=== PATIENT | female | born 1935 | race Asian ===

== ENCOUNTER 2016-09-17 07:03 | Day surgery (SDC) | payer MEDICARE ==
[~2016-09-17] VITALS: Ht 157.5 cm; Wt 60.0 kg
[2016-09-17 06:30] VITALS: BP 123/59
[2016-09-17] MEDS: CATARACT PRE-OP EYE DROPS 0.5ML SYRINGE OS SCH ×3 (06:49→07:07)
[2016-09-17] MEDS: HOME MEDICATION OS SCH ×3 (06:49→07:07)
[2016-09-17] MEDS: LIDOCAINE 3.5% OPHTH GEL (AKTEN) 1 ML BTL OS SCH ×2 (06:57→07:07)
[~2016-09-17 07:03] MED LIST: ACETAMINOPHEN 500 MG TAB (TYLENOL) PO PRN; BSS OPHTHALMIC IRRIGATION SOLUTION 15 ML BTL ONE; CHONDROITIN/HYALURONATE (DISCOVISC) 1 ML SYR IO ONE; EPINEPHrine 1MG/ML (1:1000) 1 ML AMPUL (ADRENALIN) ONE; LIDOCAINE PF 1% (XYLOCAINE) 30 ML VIAL INJ ONE; PHENYLEPHRINE/KETOROLAC 4 ML VIAL IO ONE; POVIDONE-IODINE 5% OPHTHALMIC SOLUTION (BETADINE PREP) 30 ML BTL ONE; SODIUM CHLORIDE FLUSH 3 ML SYR IV PRN; TETRACAINE 0.5% OPHTHALMIC SOLUTION 4 ML BTL ONE; VANCOMYCIN 500 MG VIAL ONE; diphenhydrAMINE 50 MG/ML INJ (BENADRYL) IV PRN
[2016-09-17] MEDS ORDERED: MIDAZOLAM 2 MG/2 ML (VERSED) VIAL ONE (07:06)
--- OUTSIDE RECORDS SUMMARY | 2016-09-17 07:09 | XMS REPORT | Continuity of Care Document ---
Author Author [facility] Address Unknown Phone Unavailable Allergies Active Description Code Type Severity Reaction Onset Reported/Identified Relationship to Patient Clinical Status Yes Ttglkno-Ibg-Qsx Reductase Inhibitor [id number] Drug Allergy Unknown N/A 09/14/2016 Medications Problems Date Dx Coded Attending Type Code Diagnosis Diagnosed By 08/07/2013 Romaine CHESTER, Randy Kunz Ot 719.41 JOINT PAIN-SHLDER 08/07/2013 Romaine CHESTER, Randy Kunz Ot V57.1 PHYSICAL THERAPY NEC 04/23/2014 Ot V76.12 04/23/2014 Romaine CHESTER, Randy Kunz Ot 250.00 04/23/2014 Romaine CHESTER, Randy Kunz Ot V76.12 04/23/2014 Romaine CHESTER, Randy Kunz Ot 250.00 04/23/2014 Romaine CHESTER, Randy Kunz Ot 272.2 04/23/2014 Romaine CHESTER, Randy Kunz Ot 477.9 04/23/2014 Romaine CHESTER, Randy Kunz Ot 716.90 04/23/2014 Romaine CHESTER, Randy Kunz Ot 715.91 04/23/2014 Romaine CHESTER, Randy Kunz Ot 719.41 05/14/2014 Romaine CHESTER, Randy Kunz Ot 250.00 05/14/2014 Romaine CHESTER, Randy Kunz Ot 272.4 05/22/2014 Romaine CHESTER, Randy Kunz Ot 250.00 05/22/2014 Romaine CHESTER, Randy Kunz Ot 268.9 06/23/2014 Romaine CHESTER, Randy Kunz Ot 698.2 08/17/2014 Romaine CHESTER, Randy Kunz Ot 250.00 08/17/2014 Romaine CHESTER, Randy Kunz Ot 268.9 08/17/2014 Romaine CHESTER, Randy Kunz Ot 272.2 12/21/2014 Romaine CHESTER, Randy Kunz Ot 250.00 12/21/2014 Randy Gavin MD Ot 272.2 12/21/2014 Romaine CHESTER, Randy Kunz Ot 530.81 12/28/2014 Randy Gavin MD Ot 250.00 12/28/2014 Randy Gavin MD Ot 272.2 12/31/2014 Randy Gavin MD Ot 530.81 04/26/2015 Erasmo CHESTER, Ronnie Brownlee Ot E78.4 04/26/2015 Erasmo CHESTER, Ronnie Brownlee Ot R73.09 08/22/2015 Ot V76.12 OTH SCREEN MAMMO-MALIGN NEOPLASM OF TAYLOR 08/22/2015 Randy Gavin MD Ot 250.00 DIAB SOPHY WO COMPL, TYPE II OR UNSPEC TY 08/22/2015 Randy Gavin MD Ot V76.12 OTH SCREEN MAMMO-MALIGN NEOPLASM OF T[place]LOR 08/22/2015 Randy Gavin MD Ot 250.00 DIAB SOPHY WO COMPL, TYPE II OR UNSPEC TY 08/22/2015 Randy Gavin MD Ot 272.2 MIXED HYPERLIPIDEMIA 08/22/2015 Randy Gavin MD Ot 477.9 ALLERGIC RHINITIS NOS 08/22/2015 Randy Gavin MD Ot 716.90 ARTHROPATHY NOS-UNSPEC 08/22/2015 Randy Gavin MD Ot 715.91 OSTEOARTHROS NOS-SHLDER 08/22/2015 Randy Gavin MD Ot 719.41 JOINT PAIN-SHLDER 08/22/2015 Randy Gavin MD Ot 250.00 DIAB SOPHY WO COMPL, TYPE II OR UNSPEC TY 08/22/2015 Randy Gavin MD Ot 272.4 HYPERLIPIDEMIA NEC/NOS 08/22/2015 Randy Gavin MD Ot 250.00 DIAB SOPHY WO COMPL, TYPE II OR UNSPEC TY 08/22/2015 Randy Gavin MD Ot 268.9 VITAMIN D DEFICIENCY NOS 08/22/2015 Randy Gavin MD Ot 698.2 PRURIGO 08/22/2015 Randy Gavin MD Ot 250.00 DIAB SOPHY WO COMPL, TYPE II OR UNSPEC TY 08/22/2015 Randy Gavin MD Ot 268.9 VITAMIN D DEFICIENCY NOS 08/22/2015 Randy Gavin MD Ot 272.2 MIXED HYPERLIPIDEMIA 08/22/2015 Romaine CHESTER, Randy Kunz Ot 250.00 DIAB SOPHY WO COMPL, TYPE II OR UNSPEC TY 08/22/2015 Romaine CHESTER, Randy Kunz Ot 272.2 MIXED HYPERLIPIDEMIA 08/22/2015 Romaine CHESTER, Randy Kunz Ot 530.81 ESOPHAGEAL REFLUX 08/22/2015 Romaine CHESTER, Randy Kunz Ot K21.9 GASTRO-ESOPHAGEAL REFLUX DISEASE WITHOUT 08/22/2015 Erasmo CHESTER, Ronnie Brownlee Ot E78.4 OTHER HYPERLIPIDEMIA 08/22/2015 Erasmo CHESTER, Ronnie Brownlee Ot R73.09 OTHER ABNORMAL GLUCOSE 08/24/2015 Romaine CHESTER, Randy Kunz Ot M48.06 SPINAL STENOSIS, LUMBAR REGION 08/24/2015 Romaine CHESTER, Randy Kunz Ot M54.5 LOW BACK PAIN 08/28/2015 Romaine CHESTER, Randy Kunz Ot M48.06 SPINAL STENOSIS, LUMBAR REGION 08/28/2015 Randy Gavin MD Ot M54.5 LOW BACK PAIN 09/15/2015 Romaine CHESTER, Randy Kunz Ot M48.06 SPINAL STENOSIS, LUMBAR REGION 09/15/2015 Randy Gavin MD Ot M54.5 LOW BACK PAIN 09/22/2015 Randy Gavin MD Ot E78.5 HYPERLIPIDEMIA, UNSPECIFIED 09/22/2015 Randy Gavin MD Ot R73.09 OTHER ABNORMAL GLUCOSE 09/22/2015 Randy Gavin MD Ot E78.5 HYPERLIPIDEMIA, UNSPECIFIED 09/22/2015 Randy Gavin MD Ot R73.09 OTHER ABNORMAL GLUCOSE 09/28/2015 Randy Gavin MD Ot E78.5 HYPERLIPIDEMIA, UNSPECIFIED 09/28/2015 Randy Gavin MD Ot R73.09 OTHER ABNORMAL GLUCOSE 09/29/2015 Randy Gavin MD Ot E78.5 HYPERLIPIDEMIA, UNSPECIFIED 09/29/2015 Randy Gavin MD Ot R73.09 OTHER ABNORMAL GLUCOSE 10/14/2015 Randy Gavin MD Ot E78.5 HYPERLIPIDEMIA, UNSPECIFIED 10/14/2015 Randy Gavin MD Ot R73.09 OTHER ABNORMAL GLUCOSE 04/09/2016 Randy Gavin MD Ot E11.40 TYPE 2 DIABETES MELLITUS WITH DIABETIC N 04/09/2016 Randy Gavin MD Ot E78.2 MIXED HYPERLIPIDEMIA 04/09/2016 Randy Gavin MD, Ot E11.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 2 DIABETES MELLITUS WITH DIABETIC N 04/09/2016 Randy Gavin MD Ot E78.2 MIXED HYPERLIPIDEMIA 04/09/2016 Randy Gavin MD, Ot 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 2 DIABETES MELLITUS WITH DIABETIC N 04/09/2016 Randy Gavin MD Ot E78.2 MIXED HYPERLIPIDEMIA 05/03/2016 Randy Gavin MD, Ot E11.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 2 DIABETES MELLITUS WITH DIABETIC N 05/03/2016 Randy Gavin MD, Ot E78.2 MIXED HYPERLIPIDEMIA 09/14/2016 Ot V76.12 OTH SCREEN MAMMO-MALIGN NEOPLASM OF T[place]LOR 09/14/2016 Randy Gavin MD Ot 250.00 DIAB SOPHY WO COMPL, TYPE II OR UNSPEC TY 09/14/2016 Randy Gavin MD Ot V76.12 OTH SCREEN MAMMO-MALIGN NEOPLASM OF T[place] 09/14/2016 Randy Gavin MD Ot 250.00 DIAB SOPHY WO COMPL, TYPE II OR UNSPEC TY 09/14/2016 Randy Gavin MD Ot 272.2 MIXED HYPERLIPIDEMIA 09/14/2016 Randy Gavin MD Ot 477.9 ALLERGIC RHINITIS NOS 09/14/2016 Randy Gavin MD Ot 716.90 ARTHROPATHY NOS-UNSPEC 09/14/2016 Randy Gavin MD Ot 715.91 OSTEOARTHROS NOS-SHLDER 09/14/2016 Randy Gavin MD Ot 719.41 JOINT PAIN-SHLDER 09/14/2016 Randy Gavin MD Ot 250.00 DIAB SOPHY WO COMPL, TYPE II OR UNSPEC TY 09/14/2016 Randy Gavin MD Ot 272.4 HYPERLIPIDEMIA NEC/NOS 09/14/2016 Randy Gavin MD Ot 250.00 DIAB SOPHY WO COMPL, TYPE II OR UNSPEC TY 09/14/2016 Randy Gavin MD Ot 268.9 VITAMIN D DEFICIENCY NOS 09/14/2016 Randy Gavin MD Ot 698.2 PRURIGO 09/14/2016 Randy Gavin MD, Ot 250.00 DIAB SOPHY WO COMPL, TYPE II OR UNSPEC TY 09/14/2016 Randy Gavin MD Ot 268.9 VITAMIN D DEFICIENCY NOS 09/14/2016 Randy Gavin MD, Ot 272.2 MIXED HYPERLIPIDEMIA 09/14/2016 Randy Gavin MD, Ot 250.00 DIAB SOPHY WO COMPL, TYPE II OR UNSPEC TY 09/14/2016 Randy Gavin MD, Ot 272.2 MIXED HYPERLIPIDEMIA 09/14/2016 Randy Gavin MD Ot 530.81 ESOPHAGEAL REFLUX 09/14/2016 Randy Gavin MD, Ot K21.9 GASTRO-ESOPHAGEAL REFLUX DISEASE WITHOUT 09/14/2016 Erasmo CHESTER, Ronnie Brownlee Ot E78.4 OTHER HYPERLIPIDEMIA 09/14/2016 Erasmo CHESTER, Ronnie Brownlee Ot R73.09 OTHER ABNORMAL GLUCOSE 09/14/2016 Randy Gavin MD, Ot M48.06 SPINAL STENOSIS, LUMBAR REGION 09/14/2016 Randy Gavin MD, Ot M54.5 LOW BACK PAIN 09/14/2016 Randy Gavin MD, Ot E78.5 HYPERLIPIDEMIA, UNSPECIFIED 09/14/2016 Randy Gavin MD, Ot R73.09 OTHER ABNORMAL GLUCOSE 09/14/2016 Randy Gavin MD Ot E11.40 TYPE 2 DIABETES MELLITUS WITH DIABETIC N 09/14/2016 Randy Gavin MD, Ot E78.2 MIXED HYPERLIPIDEMIA Procedures Results Test Result Range General health panel - 04/09/16 09:52 Blood automated leukocyte count 7.67 4.0 -11.0 Erythrocytes 4.57 4.00-5.00 12.0-16.0;g/dL 13.4 12.0-15.5 Hematocrit 39.80 35.00-45.00 Automated erythrocyte mean corpuscular volume 87 80-100 Mean corpuscular hemoglobin (MCH) determination 29.3 26.0-34.0 Automated erythrocyte mean corpuscular hemoglobin concentration measurement ( mass/volume) 33.7 31.0-37.0 Erythrocyte distribution width 11.7 11.8 -15.6 Automated blood platelet count 215 150- 450 Automated blood platelet mean volume measurement 10.8 6.0-9.5 HEMOGLOBIN A1C* - 04/09/16 09:52 HEMOGLOBIN A1C* 8.1 4.0-6.0 Comprehensive metabolic panel - 04/09/16 09:52 Sodium measurement 154 70-110 Carbon dioxide measurement 28 22-29 Serum or plasma anion gap 15.1 3-15 BLOOD UREA NITROGEN 18 7-18 CREATININE SERUM 0.77 0.6-1.2 Brucella species antibody panel (IgG, IgM) 23 10-20 Estimated glomerular filtration rate (GFR) 87.3 Estimated glomerular filtration rate (GFR) non- 72.1 OSMOLALITY,CALCULATED 281 280-300 CALCIUM 9.7 8.8-10.8 Calculated ionized calcium measurement 4.0 3.8-4.6 BILIRUBIN,TOTAL 0.8 0.1-1.0 Serum or plasma alkaline phosphatase measurement 75 38-126 ASPARTATE AMINO TRANSFERASE 26 15-37 ALANINE AMINOTRANSFERASE 26 30-65 Serum or plasma total protein measurement 8.1 6.4-8.5 Serum or plasma albumin measurement 4.5 3.4-5.0 Serum or plasma albumin/globulin mass ratio 1.250 1.1-1.8 LIPID PANEL - 04/09/16 09:52 Cholesterol 309 50-200 HDL Cholesterol 63 40-60 Triglycerides 145 10-150 LDL CHOLESTEROL 217 50-130 VLDL Cholesterol, calc 29 4.00-40.00 Cholesterol.total/Cholesterol.in HDL 4.9 0.0-5.0 Encounters ACCT No. Visit Date/Time Discharge Status Pt. Type Provider Facility Loc./Unit Complaint [id number] 12/11/2014 09:50:00 2014 23:59:59 CLS Outpatient Romaine CHESTER [facility] LAB [id number] 12/08/2014 07:29:00 2014 23:59:59 CLS Outpatient Romaine CHESTER [facility] LAB [id number] 07/23/2014 09:00:00 2014 23:59:59 [place] Outpatient Romaine CHESTER [facility] LAB [id number] 06/04/2014 11:38:00 2014 23:59:59 [place] Outpatient Romaine CHESTER [facility] LAB LAB DROP OFF [id number] 04/27/2014 10:08:00 2013 23:59:59 CLS Outpatient Gavin MD, [facility] LAB LAB DROP OFF [id number] 04/23/2014 07:39:00 2013 23:59:59 CLS Outpatient Romaine CHESTER, [facility] LAB [id number] 08/07/2013 15:00:00 2013 15:30:00 DIS Outpatient Romaine CHESTER, [facility] PT RIGHT SHOULDER PAIN [id number] 07/09/2013 09:50:00 2013 23:59:59 CLS Outpatient Romaine CHESTER, [facility] RAD [id number] 07/07/2013 08:01:00 2013 23:59:59 CLS Outpatient Romaine CHESTER, [facility] LAB [id number] 04/16/2013 08:09:00 2012 23:59:59 CLS Outpatient Romaine CHESTER, [facility] RAD SCREENING [id number] 03/25/2013 07:51:00 2012 23:59:59 CLS Outpatient Romaine CHESTER, [facility] LAB [id number] 09/17/2016 07:30:00 PEN Preadmit ROSE CHESTER, [facility] ASC LEFT CATARACT [id number] 04/09/2016 09:45:00 ACT Outpatient Romaine CHESTER, [facility] LAB [id number] 09/22/2015 10:35:00 ACT Outpatient Romaine CHESTER, [facility] LAB [id number] 08/22/2015 15:50:00 ACT Outpatient Romaine CHESTER, [facility] RAD LOWER BACK PAIN M54.5 [id number] 04/04/2015 10:29:00 ACT Outpatient Erasmo CHESTER, [facility] LAB [id number] 03/18/2012 08:15:00 Document Registration
[2016-09-17] MEDS ORDERED: CHONDROITIN/HYALURONATE (VISCOAT) 0.5 ML SYR IO ONE (07:40)
[2016-09-17] MEDS ORDERED: [UNRECOGNIZED DRUG - OTHER] IO ONE (07:45)
[2016-09-17 08:22] VITALS: BP 126/53
[2016-09-17 08:59] VITALS: BP 91/67
== END 2016-09-17 09:03 | disposition home or self-care (01) ==
LOC: ASC 07:03
PROVIDERS: ATTEND Ophthalmology
DX: H26.9 Unspecified cataract (principal); K21.9 Gastro-esophageal reflux disease without esophagitis; Z86.73 Personal history of transient ischemic attack (TIA), and cerebral infarction without residual deficits
CPT/HCPCS: 66984; A9270; C9447; J0171; J2001; J2250; J3370; V2632